=== PATIENT | female | born 1990 ===

== ENCOUNTER 2017-09-10 01:26 | Inpatient (IN) | payer MEDICAID ==
[~2017-09-10] VITALS: Ht 175.3 cm; Wt 102.7 kg
[2017-09-10] VITALS (23 sets, daily range): BP systolic 99–149; BP diastolic 55–94; PULSE 49–85; TEMP 97.6–98.5
[2017-09-10] MEDS ORDERED: PRENATAL1 TA7 PO (02:32)
[2017-09-10 02:56] LABS: BASO % 0.4 % (0.0-2.0); EOS # 0.1 (0.0-0.7); EOS % 0.7 % (0-4.0); GRAN # 8.6 (1.4-6.5); GRAN % 78.1 % (42.2-75.2); HEMATOCRIT 33.2 % (37.0-47.0); HEMOGLOBIN 11.1 g/dl (12.5-16.0); LYMPH # 1.4 (1.2-3.4); LYMPH % 12.5 % (20.0-51.0); MEAN CELL VOLUME 85 fl (80.0-100.0); MEAN CORPUSCULAR HEMOGLOBIN 29 pg (27.0-31.0); MEAN CORPUSCULAR HGB CONC 33 g/dl (33.0-37.0); MEAN PLATELET VOLUME 10.8 fl (7.4-10.4); MONO # 0.8 (0.1-0.6); MONO % 7.5 % (1.7-9.3); PLATELET COUNT 171 K/mm3 (130-400); RED BLOOD COUNT 3.89 M/mm3 (4.10-5.30); REDCELL DISTRIBUTION WIDTH-CV 12.8 % (11.5-14.5)
[2017-09-10 03:05] LABS: ALBUMIN 3.6 gm/dL (3.5-5.0); BILIRUBIN,TOTAL 0.1 mg/dL (0.0-1.0); CALCIUM 8.6 mg/dL (8.4-10.2); CREATININE, serum 0.55 mg/dL (0.52-1.25); POTASSIUM 3.5 mmol/L (3.4-5.0); TOTAL PROTEIN 6.7 gm/dL (6.4-8.2)
[2017-09-10] MEDS ORDERED: IBU600 MG PO (06:10)
[2017-09-11 04:19] VITALS: BP 121/66; PULSE 55; TEMP 98
[2017-09-11 06:45] VITALS: BP 126/95; PULSE 65; TEMP 97.8
[2017-09-11 08:21] VITALS: BP 136/84
== END 2017-09-11 14:35 | disposition home or self-care (01) | DRG 775 ==
LOC: LDRO 01:26 → LDR 02:15 → OB 02:15 → LDR 02:15 → OB 09:15
PROVIDERS: Obstetrics & Gynecology
PROC: 10E0XZZ Delivery of Products of Conception, External Approach (ICD-10-PCS; principal; 2017-09-10)
DX: O34.211 Maternal care for low transverse scar from previous cesarean delivery (principal); N85.8 Other specified noninflammatory disorders of uterus; Z3A.39 39 weeks gestation of pregnancy; Z37.0 Single live birth
CPT/HCPCS: J2590; J2795; J7120